=== PATIENT | male | born 1950 | race Caucasian/White ===

== ENCOUNTER 2017-06-05 19:28 | Inpatient (IN) ==
[2017-06-05] MEDS ORDERED: Naloxone 0.4 MG/ML INJ IVP PRN (21:19)
[2017-06-05] MEDS ORDERED: Ondansetron 4 MG/2 ML VIAL IVP PRN (21:25)
--- NOTE | 2017-06-05 21:34 | Internal Med History&Physical ---
Date of Encounter: 06/05/17 Time of Encounter: 21:31 Assessment and Plan (1) Hydronephrosis with obstructing calculus Current visit: Yes Status: Acute Right severe hydronephrosis with large partially obstructing stones Clear liquids, nothing by mouth after midnight, IV fluids, morphine for pain Check urine analyses, may discontinue Rocephin if no infection is suspected Urology consult Protonix IV for GI prophylaxis and sequential compression devices for DVT prophylaxis. The patient will be admitted for observation. Full code. Time spent on this admission 40 minutes (2) Dehydration Current visit: Yes Status: Acute IV fluids (3) Diabetes Current visit: Yes Status: Acute Insulin sliding scale Qualifiers: Diabetes mellitus type: type 2 Diabetes mellitus complication status: without complication Diabetes mellitus intermodal dispatcher insulin use: without intermodal dispatcher use Qualified Code(s): E11.9 - Type 2 diabetes mellitus without complications (4) GERD (gastroesophageal reflux disease) Current visit: Yes Status: Acute Protonix Qualifiers: Esophagitis presence: without esophagitis Qualified Code(s): K21.9 - Gastro -esophageal reflux disease without esophagitis Internal Medicine - H&P: HPI Chief complaint: Abdominal pain Admitted From: Emergency Dept ([place]) History of present illness: Mr. Belcher is a 67 year old male with a past medical history of MRDD, depression , osteoporosis, diabetes type 2 not insulin-dependent, transferred from [facility] ER. Patient is a very poor historian but he has been complaining of nausea and abdominal pain for a few days. The new CT scan shows a right severe hydronephrosis with large partial obstructing stone, also the right kidney is atrophic, these appear to be a recurrent issue. Patient was transferred over here, he denies any chest pain at the moment, short of breath. Unfortunately, because of his MRDD his story is not completely reliable. Appears to be in no distress at this moment. There is no urine analyses performed. Past Med Surg Social Fam HX - Past Medical History Medical history: other (Depression, hyperlipidemia, anxiety, nephrolithiasis, fatty lever, diabetes type 2 not insulin-dependent, hypertension, GERD, intussusception, MRDD, osteoporosis, osteoarthritis, chronic anemia iron deficiency, dementia) - Past Surgical History Surgical History: other (Myringotomy tubes, appendectomy, orthopedic surgeries, cholecystectomy, partial colon resection) - Social History Smoking Status: Never smoker Alcohol use: none Drug use: none - Additional Family History Additional family history: Unknown All Systems PM: A 10-system review of systems was performed and is negative for pertinent findings except as documented above in the HPI. Review of systems: Unable to be completed due to the patient's status - Constitutional General appearance: Present: A&O X 2 (Disoriented in time) - Head Head exam: Present: atraumatic, normocephalic Additional comments: Disorientating time - Eye Eye exam: Present: PERRL, conjuntiva pink, sclera anicteric Pupils: Present: PERRL - Neck Neck exam general surgery: Present: supple, trachea midline. Absent: lymphadenopathy - Respiratory Respiratory exam: Present: CTAB. Absent: accessory muscle use, rales, rhonchi, wheezes - Cardiovascular Cardiovascular exam: Present: RRR, +S1, +S2. Absent: diastolic murmur, gallop, rubs, systolic murmur - GI/Abdominal GI/Abdominal exam: Present: distended, normal bowel sounds, soft, tenderness ( Abdominal tenderness on the right), no peritoneal signs - Extremities Exam Extremities exam: Present: warm, radial pulses palpable and symmetrical. Absent : calf tenderness, cyanotic, pedal edema - Neurological Exam Neurological exam: Present: CN II-XII intact, no focal deficits. Absent: oriented X3, pronater drift, facial droop, speech deficit - Skin Skin exam: Present: dry, intact Internal Med - H&P Results - Labs Labs: White blood cell count 8.7, hemoglobin 2, platelets 316, sodium 141, potassium 3.9 chloride 112 CO2 21 creatinine 1, BUN 12, glucose 78
[2017-06-05] MEDS ORDERED: *HR* Dextrose 50 % in Water (Syg) 50 ML SYRINGE IVP PRN (21:38)
[2017-06-05] MEDS ORDERED: Dextrose Gel 15 GM PO PRN ×2 (21:38)
[2017-06-05] MEDS ORDERED: D5% in Water 1,000 ML IVC PRN (21:38)
[2017-06-05] MEDS ORDERED: cefTRIAXone 1,000 MG in Water for inj. (sterile) 10 ML IVP SCH (23:00)
[2017-06-05] MEDS: *HR* Morphine 2 MG/ML SYRINGE IVP PRN (23:13)
[2017-06-05] MEDS: D5% in 0.45% NACL 1,000 ML IVC SCH (23:14)
[2017-06-05] MEDS: Pantoprazole 40 MG VIAL IVP SCH (23:35)
[2017-06-06] MEDS ORDERED: CefTRIAXone 1,000 MG VIAL IM SCH (03:28)
[2017-06-06] MEDS: Insulin LISPRO 300 UNITS/3 ML VIAL SQ SCH ×4 (04:08→18:18)
[2017-06-06] MEDS: Acetaminophen 325 MG TABLET PO PRN (04:10)
[2017-06-06 07:29] LABS: Basophils # 0.1 K/mcL (0.0-0.2); Basophils % 0.5 %; Eosinophils # 0.6 K/mcL (0.0-0.6); Eosinophils % 5.5 %; Hematocrit 39.9 % (37.5-50.1); Hemoglobin 12.3 g/dL (12.9-16.9); Immature Granulocytes % 0.6 % (0-4); Lymphocytes # 2.8 K/mcL (0.6-4.6); Lymphocytes % 28.1 %; Mean Corpuscular HGB Conc 30.8 g/dL (31.6-35.5); Mean Corpuscular Hemoglobin 28.4 pg (28.0-33.3); Mean Corpuscular Volume 92.1 fL (83.0-100.0); Mean Platelet Volume 10.4 fL (9.4-12.4); Monocytes # 1.1 K/mcL (0.0-1.3); Monocytes % 10.6 %; Neutrophils # 5.5 K/mcL (1.6-8.9); Platelet Count 288 K/mcL (140-400); Red Blood Count 4.33 M/mcL (4.19-5.50); Red Cell Distribution Width 14.5 % (11.5-14.5); Segmented Neutrophils % 54.7 %
[2017-06-06 07:38] LABS: BUN/Creatinine Ratio 13 (6-26); Blood Urea Nitrogen 15 mg/dL (8-26); Calcium 9.3 mg/dL (8.6-10.8); Carbon Dioxide 22 mEq/L (19-29); Chloride 107 mEq/L (98-109); Glucose 84 mg/dL (70-99); Osmolality,Calculated 288 (280-300); Potassium 4.3 mEq/L (3.5-4.5); Sodium 139 mEq/L (136-145); eGFR For African Americans > 60 (> 60); eGFR For Non-African Americans > 60 (> 60)
--- NOTE | 2017-06-06 08:40 | Urology - Consult Note ---
Date of Encounter: 06/06/17 Time of Encounter: 08:35 - Assessment and Plan (1) Right ureteral stone Current Visit: Yes Status: Acute Assessment and plan: Patient is currently asymptomatic from his right ureteral stones as well as hydronephrosis with atrophic right kidney. This is not an acute issue and does not require any intervention while patient in the hospital. I do not believe that this is causing the patient's chest or anterior abdominal discomfort. Patient can follow-up with us after discharge for discussion of long-term management of this atrophic right kidney with obstructing stones. Urology CN:HPI Consult date: 06/06/17 Reason for consult Urology: Other (right renal stones) Requesting physician: Rommel Sharp History of present illness: Jerald is a 67 y/o MRDD male with history of transfer from [facility] for possible kidney stones. The patient states that he has some abdominal discomfort as well as chest pain. Other than that answer he is a poor historian. Upon review the patient's chart his CT scan report which was also personally reviewed revealed right-sided proximal ureteral stones with a subsequently dilated atrophic right kidney. Upon review the patient's report of the CT scan the radiologist commented that this issue on the right kidney and stones were chronic in nature. Patient was also found to have a dilated transverse colon consistent with possible ileus. Patient's WBC count has improved. Normal serum creatinine Past Med Surg Social Fam HX - Past Medical History Medical history: other (Depression, hyperlipidemia, anxiety, nephrolithiasis, fatty lever, diabetes type 2 not insulin-dependent, hypertension, GERD, intussusception, MRDD, osteoporosis, osteoarthritis, chronic anemia iron deficiency, dementia) - Past Surgical History Surgical History: other (Myringotomy tubes, appendectomy, orthopedic surgeries, cholecystectomy, partial colon resection) - Social History Smoking Status: Never smoker Alcohol use: none Drug use: none Medications and Allergies 3 Allergy/AdvReac Type Severity Reaction Status Date / Time No Known Allergies Allergy Verified 06/06/17 03:24 Review of Systems - Constitutional no chills - EENT Nose, mouth and throat: no dizziness - Cardiovascular no chest pain - Respiratory no cough - Gastrointestinal abdominal pain Exam Initial Vital Signs Temp Pulse Resp BP Pulse Ox 98.3 F 75 16 108/70 92 06/06/17 00:09 06/06/17 00:09 06/06/17 00:09 06/06/17 00:09 06/06/17 00:09 - General physical appearance Present: well developed - Neck Present: no masses - Respiratory Present: normal respiratory effort - Cardiovascular Cardiovascular exam IM: RRR - Abdomen Abdomen: Present: soft (pain on palpation with large ex lap looking incision scar) - Integumentary Present: no rash Urology Results - Labs 06/06/17 06:52 06/06/17 06:52 Abnormal lab results Hgb 12.3 g/dL (12.9-16.9) L 06/06/17 06:52 MCHC 30.8 g/dL (31.6-35.5) L 06/06/17 06:52 POC Glucose 91 (58-89) H 06/06/17 05:45 Diabetes panel 06/06/17 Range/Units 06:52 Sodium 139 (136-145) mEq/L Potassium 4.3 (3.5-4.5) mEq/L Chloride 107 (98-109) mEq/L Carbon Dioxide 22 (19-29) mEq/L BUN 15 (8-26) mg/dL Creatinine 1.17 (0.72-1.25) mg/dL Glucose 84 (70-99) mg/dL Calcium 9.3 (8.6-10.8) mg/dL Calcium panel 06/06/17 Range/Units 06:52 Calcium 9.3 (8.6-10.8) mg/dL Pituitary panel 06/06/17 Range/Units 06:52 Sodium 139 (136-145) mEq/L Potassium 4.3 (3.5-4.5) mEq/L Chloride 107 (98-109) mEq/L Carbon Dioxide 22 (19-29) mEq/L BUN 15 (8-26) mg/dL Creatinine 1.17 (0.72-1.25) mg/dL Glucose 84 (70-99) mg/dL Calcium 9.3 (8.6-10.8) mg/dL Adrenal panel 06/06/17 Range/Units 06:52 Sodium 139 (136-145) mEq/L Potassium 4.3 (3.5-4.5) mEq/L Chloride 107 (98-109) mEq/L Carbon Dioxide 22 (19-29) mEq/L BUN 15 (8-26) mg/dL Creatinine 1.17 (0.72-1.25) mg/dL Glucose 84 (70-99) mg/dL Calcium 9.3 (8.6-10.8) mg/dL All other labs normal. - Imaging CT scan - abdomen: image reviewed CT scan - pelvis: image reviewed Consult Discharge Plan - Plan Referrals: NONE,PCP [Primary Care Provider] -
[2017-06-06] MEDS ORDERED: Water for inj. (sterile) 0 ML IV ONE (09:44)
[2017-06-06] MEDS: Pantoprazole 40 MG VIAL IVP SCH (09:54)
--- NOTE | 2017-06-06 14:17 | Internal Med Progress Note ---
Date of Encounter: 06/06/17 Time of Encounter: 09:00 - Assessment and plan (1) Hydronephrosis with obstructing calculus Current Visit: Yes Status: Acute Assessment and plan: Jerald Belcher is a 67 y/o male with PMH diabetes, GERD and MRDD who presented to outside hospital on 06/05 with complaints of abdominal pain. He was found to have severe hydronephrosis and a large partially obstructing stone and was transferred to [facility] for further workup and treatment. 1. Abdominal pain: That started day of presentation after eating a ham sandwich. Outside hospital abdominal CT with chronic hydronephrosis, chronic ureteritis and possible ileus. No abdominal pain on 06/06 exam. Advance diet to clear liquids. KUB pending to reevaluate possible ileus 2. Hydronephrosis with obstructing calculus: Presented to outside hospital with Robert pain. ADD CTA showed severe right-sided hydronephrosis with large, partially obstructing stone. He was evaluated by urology who noted this is not an acute issue and does not require any intervention while inpatient. Patient can follow up with urology after discharge. UA and renal ultrasound pending. If UA unremarkable then stop Rocephin. 3. Diabetes: per hx. SSI. Monitor blood sugar and titrate PRN 4. MRDD: per hx. mentation appears at baseline. Supportive care. 5. DVT prophylaxis: Lovenox (2) Cognitive developmental delay Current Visit: Yes Status: Acute (3) Diabetes Current Visit: Yes Status: Acute Qualifiers: Diabetes mellitus type: type 2 Diabetes mellitus complication status: without complication Diabetes mellitus nursing home insulin use: without nursing home use Qualified Code(s): E11.9 - Type 2 diabetes mellitus without complications - Subjective Interval history: Seen and examined at bedside. Patient is new to me, information obtained from chart review and patient report. Patient says he feels much better on my exam, he actually denies abdominal pain. No loose stools, nausea or vomiting. - Constitutional Vitals: Temp Pulse Resp BP Pulse Ox 98.0 F 66 14 121/73 93 06/06/17 11:09 06/06/17 11:09 06/06/17 11:09 06/06/17 11:09 06/06/17 11:09 General appearance: Present: A&O X 2 (Disoriented in time) - Head Head exam: Present: atraumatic, normocephalic - Eye Eye exam: Present: PERRL, conjuntiva pink, sclera anicteric Pupils: Present: PERRL - Neck Neck exam general surgery: Present: supple, trachea midline. Absent: lymphadenopathy - Respiratory Respiratory exam: Present: CTAB. Absent: accessory muscle use, rales, rhonchi, wheezes - Cardiovascular Cardiovascular exam: Present: RRR, +S1, +S2. Absent: diastolic murmur, gallop, rubs, systolic murmur - GI/Abdominal GI/Abdominal exam: Present: normal bowel sounds, soft, no peritoneal signs. Absent: distended, tenderness - Extremities Exam Extremities exam: Present: warm, radial pulses palpable and symmetrical. Absent : calf tenderness, cyanotic, pedal edema - Neurological Exam Neurological exam: Present: CN II-XII intact, oriented X3, no focal deficits. Absent: pronater drift, facial droop, speech deficit - Skin Skin exam: Present: dry, intact Internal Medicine: Result - Labs CBC & Chem 7: 06/06/17 06:52 06/06/17 06:52 Labs: Short CBC 06/06/17 Range/Units 06:52 WBC 10.1 (4.3-11.1) K/mcL Hgb 12.3 L (12.9-16.9) g/dL Hct 39.9 (37.5-50.1) % Plt Count 288 (140-400) K/mcL Neutrophils # 5.5 (1.6-8.9) K/mcL BMP 06/06/17 06:52 Sodium 139 Potassium 4.3 Chloride 107 Carbon Dioxide 22 BUN 15 Creatinine 1.17 Glucose 84 Calcium 9.3 Consult Discharge Plan - Plan Referrals: NONE,PCP [Primary Care Provider] -
[2017-06-06] MEDS: *HR* Morphine 2 MG/ML SYRINGE IVP PRN ×2 (15:53→20:10)
[2017-06-06] MEDS: *HR* Enoxaparin 40 MG/0.4 ML SYRINGE SQ SCH (15:53)
[2017-06-06] MEDS: D5% in 0.45% NACL 1,000 ML IVC SCH ×2 (18:20→22:18)
[2017-06-07] MEDS: Insulin LISPRO 300 UNITS/3 ML VIAL SQ SCH ×4 (00:35→17:43)
[2017-06-07 05:07] LABS: Hematocrit 34.6 % (37.5-50.1); Mean Corpuscular HGB Conc 30.9 g/dL (31.6-35.5); Mean Corpuscular Hemoglobin 28.2 pg (28.0-33.3); Mean Corpuscular Volume 91.3 fL (83.0-100.0); Mean Platelet Volume 9.9 fL (9.4-12.4); Platelet Count 277 K/mcL (140-400); Red Blood Count 3.79 M/mcL (4.19-5.50); Red Cell Distribution Width 14.3 % (11.5-14.5)
[2017-06-07 05:39] LABS: Hemoglobin 10.7 g/dL (12.9-16.9)
[2017-06-07 05:49] LABS: BUN/Creatinine Ratio 10 (6-26); Blood Urea Nitrogen 11 mg/dL (8-26); Calcium 8.7 mg/dL (8.6-10.8); Carbon Dioxide 22 mEq/L (19-29); Chloride 107 mEq/L (98-109); Glucose 108 mg/dL (70-99); Osmolality,Calculated 286 (280-300); Potassium 3.7 mEq/L (3.5-4.5); Sodium 138 mEq/L (136-145); eGFR For African Americans > 60 (> 60); eGFR For Non-African Americans > 60 (> 60)
[2017-06-07] MEDS: *HR* Enoxaparin 40 MG/0.4 ML SYRINGE SQ SCH (06:05)
[2017-06-07] MEDS: cefTRIAXone 1,000 MG in Water for inj. (sterile) 10 ML IVP SCH (09:09)
[2017-06-07] MEDS: Pantoprazole 40 MG VIAL IVP SCH (09:10)
[2017-06-07] MEDS: D5% in 0.45% NACL 1,000 ML IVC SCH ×2 (09:11→20:15)
[2017-06-07] MEDS: *HR* Morphine 2 MG/ML SYRINGE IVP PRN ×3 (11:45→22:11)
--- NOTE | 2017-06-07 11:48 | General Surgery Consult Note ---
Date of Encounter: 06/07/17 Time of Encounter: 11:30 Assessment and Plan (1) Ileus, unspecified Current Visit: Yes Status: Acute NPO IV fluids Supportive care and pain control Serial abdominal exams CT scan to further evaluate for ileus vs PSBO and continued abdominal pain Surgery will continue to follow and assess progess No urgent surgical intervention indicated at this time Recommend UA with culture (ordered but uncollected) (2) Abdominal pain Current Visit: Yes Status: Acute CT scan of the abdomen with PO contrast to evauate abdominal pain further ( ordered per hospitalist) Qualifiers: Abdominal location: periumbilical Qualified Code(s): R10.33 - Periumbilical pain (3) Diabetes Current Visit: Yes Status: Chronic Controlled Management per medicine service Qualifiers: Diabetes mellitus type: type 2 Diabetes mellitus complication status: without complication Diabetes mellitus exterminator helper insulin use: without exterminator helper use Qualified Code(s): E11.9 - Type 2 diabetes mellitus without complications (4) GERD (gastroesophageal reflux disease) Current Visit: Yes Status: Chronic PPI therapy daily Qualifiers: Esophagitis presence: without esophagitis Qualified Code(s): K21.9 - Gastro -esophageal reflux disease without esophagitis (5) Right ureteral stone Current Visit: Yes Status: Acute Urology consulted and recommended outpatient follow-up (6) DVT prophylaxis Current Visit: Yes Status: Acute Lovenox 40mg SQ daily for DVT prophylaxis EPCDs to bilateral lower extremities for DVT prophylaxis History of Present Illness Consult date: 06/07/17 Requesting physician: Kathy Gongora History of present illness: Mr. Belcher is a 67 year old male with multiple comorbidities. He does have a history of MRDD and is a resident at [facility] in [place]. He is a poor historian and much of the history is taken from the medical records. The patient is able to give appropriate answers to simple questions. He was transferred from [facility] with complaints of abdominal discomfort and possible right ureteral stone. The patient has been seen and evaluated by the urology and his CAT scan findings are chronic in nature and felt to not be the cause of his acute pain. He has had continued abdominal discomfort during his hospital stay and states that this has not improved. He denies any radiating factors. He states that the pain is centrally located around his umbilicus. He states the pain is constant. He does report constipation but did have a large, soft bowel movement this morning. He is passing flatus as recent as this morning. He denies any nausea or vomiting. He admits to abdominal bloating and poor appetite. Past Med Surg Social Fam HX - Past Medical History Source: patient, old records reviewed Medical history: dementia (With behavioral disturbance), diabetes (Type 2), GERD , hypertension, kidney stones, other (Acute kidney injury, rhabdomyolysis, urinary tract infection, small bowel obstruction, anemia, chronic headaches, chronic constipation, atrophy of kidney) Psychiatric history: anxiety, depression - Past Surgical History Surgical History: other (Myringotomy tubes, appendectomy, orthopedic surgeries, cholecystectomy, partial colon resection) - Social History Smoking Status: Never smoker Alcohol use: none Drug use: none Occupational status: disabled Current living situation: [facility] Activity Level: Independent ambulation Medications and Allergies Acetaminophen [Tylenol] 650 mg PO Q4H PRN 06/06/17 [History] Bisacodyl [Dulcolax] 10 mg RC DAILY PRN 06/06/17 [History] Calcium Carbonate/Vitamin D3 [Calcium 500 + Vit D Caplet] 1 tab PO BID 06/06/17 [History] Docusate Sodium [Dok] 100 mg PO Q12H PRN 06/06/17 [History] Loratadine [Allergy Relief] 10 mg PO DAILY 06/06/17 [History] Metoprolol [Lopressor] 25 mg PO BID 06/06/17 [History] [place]-3/Dha/Epa/Fish Oil [Fish Oil 1,000 mg Softgel] 1 cap PO DAILY 06/06/17 [ History] Potassium Chloride [K-Tab ER] 20 meq PO BID 06/06/17 [History] Prochlorperazine Maleate [Compazine] 5 mg PO ACHS 06/06/17 [History] Promethazine [Phenergan] 25 mg PO Q4H 06/06/17 [History] Quetiapine Fumarate [Seroquel] 50 mg PO HS 06/06/17 [History] Sertraline [Zoloft] 50 mg PO HS 06/06/17 [History] Triamcinolone Acet 0.1% CRM [Kenalog] 1 appl TP BID PRN 06/06/17 [History] 3 Allergy/AdvReac Type Severity Reaction Status Date / Time No Known Allergies Allergy Verified 06/06/17 03:24 Review of Systems All systems PM: reviewed and no additional remarkable complaints except as stated (in the HPI) All systems PM: A 10-system review of systems was performed and is negative for pertinent findings except as documented above in the HPI. General Surgery Exam Initial Vital Signs Temp Pulse Resp BP Pulse Ox 98.3 F 75 16 108/70 92 06/06/17 00:09 06/06/17 00:09 06/06/17 00:09 06/06/17 00:09 06/06/17 00:09 - General physical appearance well developed, well nourished, moderate pain - Eyes PERRL, normal ocular movement - ENT normal mucosa, atraumatic, normocephalic - Neck trachea midline - Respiratory normal respiratory effort, clear to auscultation - Cardiovascular Cardiovascular exam: Present: RRR - Abdomen Abdomen general surgery: Present: bowel sounds present, soft, tender Hernia: Present: umbilical - Integumentary Integumentary general surgery: Present: warm and dry - Neurologic Present: CN 2-12 grossly intact - Psychiatric Psychiatric general surgery: Present: oriented to person, oriented to place, speech is normal, tearful Exam Initial Vital Signs Temp Pulse Resp BP Pulse Ox 98.3 F 75 16 108/70 92 06/06/17 00:09 06/06/17 00:09 06/06/17 00:09 06/06/17 00:09 06/06/17 00:09 Results - Labs 06/07/17 04:45 06/07/17 04:45 Abnormal lab results RBC 3.79 M/mcL (4.19-5.50) L 06/07/17 04:45 Hgb 10.7 g/dL (12.9-16.9) L D 06/07/17 04:45 Hct 34.6 % (37.5-50.1) L 06/07/17 04:45 MCHC 30.9 g/dL (31.6-35.5) L 06/07/17 04:45 Glucose 108 mg/dL (70-99) H 06/07/17 04:45 POC Glucose 107 (58-89) H 06/07/17 05:47 Diabetes panel 06/07/17 Range/Units 04:45 Sodium 138 (136-145) mEq/L Potassium 3.7 (3.5-4.5) mEq/L Chloride 107 (98-109) mEq/L Carbon Dioxide 22 (19-29) mEq/L BUN 11 (8-26) mg/dL Creatinine 1.07 (0.72-1.25) mg/dL Glucose 108 H (70-99) mg/dL Calcium 8.7 (8.6-10.8) mg/dL Calcium panel 06/07/17 Range/Units 04:45 Calcium 8.7 (8.6-10.8) mg/dL Pituitary panel 06/07/17 Range/Units 04:45 Sodium 138 (136-145) mEq/L Potassium 3.7 (3.5-4.5) mEq/L Chloride 107 (98-109) mEq/L Carbon Dioxide 22 (19-29) mEq/L BUN 11 (8-26) mg/dL Creatinine 1.07 (0.72-1.25) mg/dL Glucose 108 H (70-99) mg/dL Calcium 8.7 (8.6-10.8) mg/dL Adrenal panel 06/07/17 Range/Units 04:45 Sodium 138 (136-145) mEq/L Potassium 3.7 (3.5-4.5) mEq/L Chloride 107 (98-109) mEq/L Carbon Dioxide 22 (19-29) mEq/L BUN 11 (8-26) mg/dL Creatinine 1.07 (0.72-1.25) mg/dL Glucose 108 H (70-99) mg/dL Calcium 8.7 (8.6-10.8) mg/dL All other labs normal. - Imaging Abdominal x-ray: report reviewed Additional studies: KUB X-Ray 06/06/17 14:29 IMPRESSION: Gaseous distention of stomach and multiple small bowel loops concerning for small bowel obstruction versus ileus. Clinical correlation and continued follow-up recommended. Multiple ossifications in the right mid abdomen appear to be somewhat laterally located for the ureter, but ureteral stones cannot entirely be excluded. CT may be of use for further evaluation. D/ / 06/06/2017 15:10:34 Tono Reyna MD / jeff Interpreting Provider: Tono Reyna MD Consult Discharge Plan - Plan Referrals: NONE,PCP [Primary Care Provider] - - Attending Attestation For this encounter, I have reviewed the LEAD CASE MANAGER or PA documentation, treatment plan, and medical decision making; and I have had face to face time with this patient.
[2017-06-07] MEDS: Acetaminophen 325 MG TABLET PO PRN (14:30)
[2017-06-07 16:21] LABS: Bilirubin,Urine Negative (Negative); Blood,Urine Moderate (Negative); Clarity,Urine Cloudy (Clear); Color,Urine Yellow (Yellow); Glucose,Urine (UA) Normal (Normal); Ketones,Urine Negative (Negative); Leukocyte Esterase,Urine Large (Negative); Nitrite,Urine Negative (Negative); PH,Urine 6.5 pH Units (5.0-8.0); Protein,Urine Negative (Neg-Trace); Specific Gravity,Urine 1.006 (1.010-1.025); Urobilinogen,Urine Normal (Normal)
[2017-06-07 16:39] LABS: Squamous Epithelial Cell,Urine Few per lpf (None-Few)
[2017-06-07 16:41] LABS: RBC,Urine 0-3 per hpf (0-3)
[2017-06-07 16:43] LABS: Amorphous Sediment,Urine Few (Few)
[2017-06-07 16:55] LABS: Bacteria,Urine Few per hpf (None-Few)
--- NOTE | 2017-06-07 17:15 | Internal Med Progress Note ---
Date of Encounter: 06/07/17 Time of Encounter: 11:30 - Assessment and plan (1) Hydronephrosis with obstructing calculus Current Visit: Yes Status: Acute Assessment and plan: Jerald Belcher is a 67 y/o male with PMH diabetes, GERD and MRDD who presented to outside hospital on 06/05 with complaints of abdominal pain. He was found to have severe hydronephrosis and a large partially obstructing stone and was transferred to [facility] for further workup and treatment. 1. Abdominal pain: That started day of presentation after eating a ham sandwich. Outside hospital abdominal CT with chronic hydronephrosis, chronic ureteritis and possible ileus. Repeat ABD CT with small bowel loops are mildly dilated concerning for SBO or ilues. No vomiting, abdominal exam benign. No peritoneal signs. Hold on NG. Increase mobility as able. NPO General surgery following 2. Hydronephrosis with obstructing calculus: Presented to outside hospital with Robert pain. ABD CT showed severe right-sided hydronephrosis with large, partially obstructing stone. Renal US with severe right hydronephrosis with multiple stones in the proximal right ureter. He was evaluated by urology who noted this is not an acute issue and does not require any intervention while inpatient. Patient can follow up with urology after discharge. UA and renal ultrasound pending. 3. Diabetes: per hx. SSI. Monitor blood sugar and titrate PRN 4. MRDD: per hx. mentation appears at baseline. Supportive care. 5. DVT prophylaxis: Lovenox 6. Abnormal UA: UA was leuk esterase and pyuria. Continue Rocephin. Urine culture pending. Narrow ATB's culture finalizes. (2) Cognitive developmental delay Current Visit: Yes Status: Acute (3) Diabetes Current Visit: Yes Status: Chronic Qualifiers: Diabetes mellitus type: type 2 Diabetes mellitus complication status: without complication Diabetes mellitus intermediate insulin use: without intermediate use Qualified Code(s): E11.9 - Type 2 diabetes mellitus without complications - Subjective Interval history: Seen and examined at bedside. He is complaining of chest pain and abdominal pain. Chest pain is reproducible on exam with light palpation. ABD is tender to touch. Denies SOB - Constitutional Vitals: Temp Pulse Resp BP Pulse Ox 97.5 F L 66 16 98/62 97 06/07/17 15:11 06/07/17 15:11 06/07/17 15:11 06/07/17 15:11 06/07/17 15:11 General appearance: Present: A&O X 2 (Disoriented in time) - Head Head exam: Present: atraumatic, normocephalic - Eye Eye exam: Present: PERRL, conjuntiva pink, sclera anicteric Pupils: Present: PERRL - Neck Neck exam general surgery: Present: supple, trachea midline. Absent: lymphadenopathy - Respiratory Respiratory exam: Present: chest wall tenderness, CTAB. Absent: accessory muscle use, rales, rhonchi, wheezes - Cardiovascular Cardiovascular exam: Present: RRR, +S1, +S2. Absent: diastolic murmur, gallop, rubs, systolic murmur - GI/Abdominal GI/Abdominal exam: Present: normal bowel sounds, soft, no peritoneal signs. Absent: distended, tenderness - Extremities Exam Extremities exam: Present: warm, radial pulses palpable and symmetrical. Absent : calf tenderness, cyanotic, pedal edema - Neurological Exam Neurological exam: Present: CN II-XII intact, oriented X3, no focal deficits. Absent: pronater drift, facial droop, speech deficit - Skin Skin exam: Present: dry, intact Internal Medicine: Result - Labs CBC & Chem 7: 06/07/17 04:45 06/07/17 04:45 Labs: Short CBC 06/07/17 Range/Units 04:45 WBC 10.5 (4.3-11.1) K/mcL Hgb 10.7 L D (12.9-16.9) g/dL Hct 34.6 L (37.5-50.1) % Plt Count 277 (140-400) K/mcL BMP 06/07/17 04:45 Sodium 138 Potassium 3.7 Chloride 107 Carbon Dioxide 22 BUN 11 Creatinine 1.07 Glucose 108 H Calcium 8.7 Urine 06/07/17 Range/Units 12:40 Urine Color Yellow (Yellow) Urine Clarity Cloudy A (Clear) Urine pH 6.5 (5.0-8.0) pH Units Ur Specific [place] 1.006 L (1.010-1.025) Urine Protein Negative (Neg-Trace) mg/dL Urine Glucose (UA) Normal (Normal) mg/dL - Impressions Impressions Retroperitoneum Ultrasound 06/06/17 10:00 IMPRESSION: Severe right hydronephrosis with cortical thinning. Multiple stones are noted within the kidney and proximal right ureter. Mild left hydronephrosis without evidence of nephrolithiasis. RECOMMENDATIONS: Consideration could be given to CT urogram to evaluate the distal ureters and urinary bladder. D/ / Pardeep Manzo / Pardeep Manzo Interpreting Provider: Pardeep Manzo Abdomen/Pelvis CT 06/07/17 12:45 IMPRESSION: 1. Postsurgical changes are seen status post partial colectomy. The small bowel loops are mildly dilated, measuring up to 3.5 cm in diameter. There is gaseous distention of the transverse colon. No discrete transition point identified. Findings are favored to represent ileus. 2. Marked right renal atrophy likely due to chronic obstruction from ureteral calculi. 3. Hepatic steatosis. D/ / 06/07/2017 13:28:19 Poppy Shelton MD / chi Interpreting Provider: Poppy Shelton MD Consult Discharge Plan - Plan Referrals: NONE,PCP [Primary Care Provider] -
[2017-06-07] MEDS: Metoclopramide 10 MG/2 ML VIAL IVP SCH ×2 (17:43→23:51)
[2017-06-08] MEDS: Insulin LISPRO 300 UNITS/3 ML VIAL SQ SCH ×4 (00:34→20:44)
[2017-06-08 04:09] LABS: Hematocrit 33.1 % (37.5-50.1); Hemoglobin 10.6 g/dL (12.9-16.9); Mean Corpuscular Hemoglobin 28.8 pg (28.0-33.3); Mean Corpuscular Volume 89.9 fL (83.0-100.0); Mean Platelet Volume 10.2 fL (9.4-12.4); Platelet Count 271 K/mcL (140-400); Red Blood Count 3.68 M/mcL (4.19-5.50); Red Cell Distribution Width 13.9 % (11.5-14.5)
[2017-06-08 04:22] LABS: BUN/Creatinine Ratio 8 (6-26); Blood Urea Nitrogen 8 mg/dL (8-26); Calcium 8.6 mg/dL (8.6-10.8); Carbon Dioxide 21 mEq/L (19-29); Chloride 109 mEq/L (98-109); Glucose 99 mg/dL (70-99); Osmolality,Calculated 288 (280-300); Potassium 3.4 mEq/L (3.5-4.5); Sodium 140 mEq/L (136-145); eGFR For African Americans > 60 (> 60); eGFR For Non-African Americans > 60 (> 60)
[2017-06-08] MEDS: D5% in 0.45% NACL 1,000 ML IVC SCH ×2 (06:45→16:51)
[2017-06-08] MEDS: *HR* Enoxaparin 40 MG/0.4 ML SYRINGE SQ SCH (06:47)
[2017-06-08] MEDS: Metoclopramide 10 MG/2 ML VIAL IVP SCH ×3 (06:47→22:29)
--- NOTE | 2017-06-08 09:12 | Internal Med Progress Note ---
Date of Encounter: 06/08/17 Time of Encounter: 09:11 - Assessment and plan (1) Ileus, unspecified Current Visit: Yes Status: Acute Assessment and plan: Jerald Belcher is a 67 y/o male with PMH diabetes, GERD and MRDD who presented to outside hospital on 06/05 with complaints of abdominal pain. He was found to have severe hydronephrosis and a large partially obstructing stone and was transferred to [facility] for further workup and treatment. 1. Ileus: presented with abdominal pain that started day of admission. Hx partial colectomy but details unclear. Outside hospital abdominal CT with chronic hydronephrosis, chronic ureteritis and possible ileus. Repeat ABD CT with mildly dilated small bowel loops and gaseous distention of transverse colon , concerning for SBO or ilues. No vomiting. Still with abdominal pain. Abdominal exam benign; no peritoneal signs. Hold on NG. NPO. General surgery following. PT/OT consult for mobility. 2. Hydronephrosis with obstructing calculus: presented to outside hospital with abdominal pain. ABD CT showed severe right-sided hydronephrosis with large, partially obstructing stone. Renal US showed severe right hydronephrosis with multiple stones in the proximal right ureter. He was evaluated by Urology who noted likely chronic, no acute intervention required at this time. Will need to follow up with Urology after discharge. 3. Abnormal UA: UA was leuk esterase and pyuria. Continue Rocephin. Urine culture pending. Narrow ATB as culture finalizes. 4. Hypertension: Per history. BP soft/borderline. Hold home BB. Resume as BP allows. 5. Diabetes: per hx. SSI. Monitor blood sugar and titrate PRN 6. MRDD: per hx. High functioning. Lives at [facility]. Mentation appears at baseline. Supportive care. 7. DVT prophylaxis: Lovenox (2) Hydronephrosis with obstructing calculus Current Visit: Yes Status: Acute (3) Cognitive developmental delay Current Visit: Yes Status: Acute (4) Diabetes Current Visit: Yes Status: Chronic Qualifiers: Diabetes mellitus type: type 2 Diabetes mellitus complication status: without complication Diabetes mellitus residential insulin use: without residential use Qualified Code(s): E11.9 - Type 2 diabetes mellitus without complications - Subjective Interval history: Seen and examined at bedside. Still with complaints of abdominal pain. Has some nausea. No emesis. Denies chest pain, no shortness of breath. Has not had a bowel movement since admission. Says he had colon surgery several years ago where they removed a large part of his colon but he is unsure details. - Constitutional Vitals: Temp Pulse Resp BP Pulse Ox 98.1 F 90 16 129/71 93 06/08/17 06:37 06/08/17 06:37 06/08/17 06:37 06/08/17 06:37 06/08/17 06:37 General appearance: Present: A&O X 2 (Disoriented in time) - Head Head exam: Present: atraumatic, normocephalic - Eye Eye exam: Present: PERRL, conjuntiva pink, sclera anicteric Pupils: Present: PERRL - Neck Neck exam general surgery: Present: supple, trachea midline. Absent: lymphadenopathy - Respiratory Respiratory exam: Present: CTAB. Absent: accessory muscle use, rales, rhonchi, wheezes - Cardiovascular Cardiovascular exam: Present: RRR, +S1, +S2. Absent: diastolic murmur, gallop, rubs, systolic murmur - GI/Abdominal GI/Abdominal exam: Present: soft, no peritoneal signs. Absent: distended, tenderness Additional comments: Hypoactive bowel sounds. Abdomen tender to palpation. - Extremities Exam Extremities exam: Present: warm, radial pulses palpable and symmetrical. Absent : calf tenderness, cyanotic, pedal edema - Neurological Exam Neurological exam: Present: CN II-XII intact, oriented X3, no focal deficits. Absent: pronater drift, facial droop, speech deficit - Skin Skin exam: Present: dry, intact Internal Medicine: Result - Labs CBC & Chem 7: 06/08/17 03:50 06/08/17 03:50 Labs: Short CBC 06/08/17 Range/Units 03:50 WBC 9.3 (4.3-11.1) K/mcL Hgb 10.6 L (12.9-16.9) g/dL Hct 33.1 L (37.5-50.1) % Plt Count 271 (140-400) K/mcL BMP 06/08/17 03:50 Sodium 140 Potassium 3.4 L Chloride 109 Carbon Dioxide 21 BUN 8 Creatinine 1.04 Glucose 99 Calcium 8.6 Urine 06/07/17 Range/Units 12:40 Urine Color Yellow (Yellow) Urine Clarity Cloudy A (Clear) Urine pH 6.5 (5.0-8.0) pH Units Ur Specific [place] 1.006 L (1.010-1.025) Urine Protein Negative (Neg-Trace) mg/dL Urine Glucose (UA) Normal (Normal) mg/dL - Impressions Impressions Retroperitoneum Ultrasound 06/06/17 10:00 IMPRESSION: Severe right hydronephrosis with cortical thinning. Multiple stones are noted within the kidney and proximal right ureter. Mild left hydronephrosis without evidence of nephrolithiasis. RECOMMENDATIONS: Consideration could be given to CT urogram to evaluate the distal ureters and urinary bladder. D/ / Pardeep Manzo / Pardeep Manzo Interpreting Provider: Pardeep Manzo Abdomen/Pelvis CT 06/07/17 12:45 IMPRESSION: 1. Postsurgical changes are seen status post partial colectomy. The small bowel loops are mildly dilated, measuring up to 3.5 cm in diameter. There is gaseous distention of the transverse colon. No discrete transition point identified. Findings are favored to represent ileus. 2. Marked right renal atrophy likely due to chronic obstruction from ureteral calculi. 3. Hepatic steatosis. D/ / 06/07/2017 13:28:19 Poppy Shelton MD / chi Interpreting Provider: Poppy Shelton MD Consult Discharge Plan - Plan Referrals: NONE,PCP [Primary Care Provider] -
[2017-06-08] MEDS: cefTRIAXone 1,000 MG in Water for inj. (sterile) 10 ML IVP SCH (10:35)
[2017-06-08] MEDS: Pantoprazole 40 MG VIAL IVP SCH ×2 (10:36→20:38)
[2017-06-08] MEDS: *HR* Morphine 2 MG/ML SYRINGE IVP PRN ×2 (13:05→20:37)
--- NOTE | 2017-06-08 14:46 | General Surgery Progress Note ---
Date of Encounter: 06/08/17 Time of Encounter: 14:30 - Assessment and Plan (1) Ileus, unspecified Current Visit: Yes Status: Acute Advance to full liquids Reglan every 6 hours X 48 hours IV fluids Supportive care and pain control Serial abdominal exams Surgery will continue to follow from a distance No urgent surgical intervention indicated at this time (2) Abdominal pain Current Visit: Yes Status: Acute CT scan of the abdomen consistent with ileus Continue reglan every 6 hours Advance to full liquids Qualifiers: Abdominal location: periumbilical Qualified Code(s): R10.33 - Periumbilical pain (3) Diabetes Current Visit: Yes Status: Chronic Controlled Management per medicine service Qualifiers: Diabetes mellitus type: type 2 Diabetes mellitus complication status: without complication Diabetes mellitus halfway insulin use: without termite inspector use Qualified Code(s): E11.9 - Type 2 diabetes mellitus without complications (4) GERD (gastroesophageal reflux disease) Current Visit: Yes Status: Chronic PPI therapy daily Qualifiers: Esophagitis presence: without esophagitis Qualified Code(s): K21.9 - Gastro -esophageal reflux disease without esophagitis (5) Right ureteral stone Current Visit: Yes Status: Acute Urology consulted and recommended outpatient follow-up (6) DVT prophylaxis Current Visit: Yes Status: Acute Lovenox 40mg SQ daily for DVT prophylaxis EPCDs to bilateral lower extremities for DVT prophylaxis Subjective Patient reports: no new complaints, feels better, still having pain, pain is less, voiding w/o difficulty (incontinent), flatus, bowel movement (yesterday and today), afebrile Objective Vital Signs - Last 8 Hours Temp Pulse Resp BP Pulse Ox 06/08/17 11:18 98.0 F 92 16 122/68 92 Intake and Output 06/07/17 06/08/17 06/08/17 23:59 07:59 15:59 Intake Total 1000 / 1000 1000 / 1000 Balance 1000 / 1000 1000 / 1000 Intake: IV Fluids 1000 / 1000 1000 / 1000 D5% And 0.45% Nacl 1000 Ml Bag 1000 / 1000 1000 / 1000 1,000 ML @ 100 mls/hr IVC .Q10H DINA Rx#:[id number] Oral 0 / 0 Other: Meal NPO # Urine Diapers 1 1 1 Weight 71.469 kg Blood Glucose* 90 95 118 Patient Weight 06/08/17 23:59 Weight 71.469 kg - General physical appearance well developed, well nourished, no distress - Eyes normal ocular movement - ENT normal mucosa, atraumatic, normocephalic - Neck Neck exam: trachea midline - Respiratory normal respiratory effort, clear to auscultation - Cardiovascular Cardiovascular exam: Present: RRR - Abdomen Abdomen: Present: bowel sounds present, soft, tender (central tenderness) - Neurologic CN 2-12 grossly intact - Psychiatric oriented to person, oriented to place, speech is normal - Labs 06/08/17 03:50 06/08/17 03:50 Diabetes panel 06/08/17 Range/Units 03:50 Sodium 140 (136-145) mEq/L Potassium 3.4 L (3.5-4.5) mEq/L Chloride 109 (98-109) mEq/L Carbon Dioxide 21 (19-29) mEq/L BUN 8 (8-26) mg/dL Creatinine 1.04 (0.72-1.25) mg/dL Glucose 99 (70-99) mg/dL Calcium 8.6 (8.6-10.8) mg/dL Calcium panel 06/08/17 Range/Units 03:50 Calcium 8.6 (8.6-10.8) mg/dL Pituitary panel 06/08/17 Range/Units 03:50 Sodium 140 (136-145) mEq/L Potassium 3.4 L (3.5-4.5) mEq/L Chloride 109 (98-109) mEq/L Carbon Dioxide 21 (19-29) mEq/L BUN 8 (8-26) mg/dL Creatinine 1.04 (0.72-1.25) mg/dL Glucose 99 (70-99) mg/dL Calcium 8.6 (8.6-10.8) mg/dL Adrenal panel 06/08/17 Range/Units 03:50 Sodium 140 (136-145) mEq/L Potassium 3.4 L (3.5-4.5) mEq/L Chloride 109 (98-109) mEq/L Carbon Dioxide 21 (19-29) mEq/L BUN 8 (8-26) mg/dL Creatinine 1.04 (0.72-1.25) mg/dL Glucose 99 (70-99) mg/dL Calcium 8.6 (8.6-10.8) mg/dL Consult Discharge Plan - Plan Referrals: NONE,PCP [Primary Care Provider] -
[2017-06-08] MEDS ORDERED: *HR* Morphine 2 MG/ML SYRINGE IVP ONE (14:52)
[2017-06-09] MEDS: D5% in 0.45% NACL 1,000 ML IVC SCH ×2 (02:58→15:13)
[2017-06-09] MEDS: *HR* Morphine 2 MG/ML SYRINGE IVP PRN ×4 (02:59→20:45)
[2017-06-09 05:33] LABS: Hematocrit 32.6 % (37.5-50.1); Hemoglobin 10.2 g/dL (12.9-16.9); Mean Corpuscular HGB Conc 31.3 g/dL (31.6-35.5); Mean Corpuscular Hemoglobin 28.6 pg (28.0-33.3); Mean Corpuscular Volume 91.3 fL (83.0-100.0); Mean Platelet Volume 10.5 fL (9.4-12.4); Platelet Count 268 K/mcL (140-400); Red Blood Count 3.57 M/mcL (4.19-5.50); Red Cell Distribution Width 14.1 % (11.5-14.5)
[2017-06-09 05:48] LABS: BUN/Creatinine Ratio 4 (6-26); Calcium 8.8 mg/dL (8.6-10.8); Carbon Dioxide 22 mEq/L (19-29); Chloride 111 mEq/L (98-109); Glucose 95 mg/dL (70-99); Osmolality,Calculated 291 (280-300); Potassium 3.3 mEq/L (3.5-4.5); Sodium 142 mEq/L (136-145); eGFR For African Americans > 60 (> 60); eGFR For Non-African Americans > 60 (> 60)
[2017-06-09 05:51] LABS: Blood Urea Nitrogen 4 mg/dL (8-26)
[2017-06-09] MEDS: Insulin LISPRO 300 UNITS/3 ML VIAL SQ SCH ×4 (06:11→17:49)
[2017-06-09] MEDS: *HR* Enoxaparin 40 MG/0.4 ML SYRINGE SQ SCH (06:14)
[2017-06-09 09:21] LABS: Hemoglobin A1C 5.3 %
[2017-06-09 09:24] LABS: Chol/HDL Ratio 5.6 (0-4.9); Cholesterol 169 mg/dL (< 200); HDL Cholesterol 30 mg/dL (40-59); LDL Cholesterol,Calculated 102 mg/dL (0-99); Triglycerides 183 mg/dL (< 150)
[2017-06-09] MEDS: cefTRIAXone 1,000 MG in Water for inj. (sterile) 10 ML IVP SCH (10:33)
[2017-06-09] MEDS: Pantoprazole 40 MG VIAL IVP SCH ×2 (10:34→19:43)
--- NOTE | 2017-06-09 10:47 | General Surgery Progress Note ---
Date of Encounter: 06/09/17 Time of Encounter: 10:30 - Assessment and Plan (1) Ileus, unspecified Current Visit: Yes Status: Acute NPO SBFT today Reglan every 6 hours IV fluids- 100ml/hour Supportive care and pain control Serial abdominal exams Surgery will continue to follow and assess progress No urgent surgical intervention indicated at this time (2) Abdominal pain Current Visit: Yes Status: Acute CT scan of the abdomen consistent with ileus 06/07/17 SBFT today Continue reglan every 6 hours NPO Qualifiers: Abdominal location: periumbilical Qualified Code(s): R10.33 - Periumbilical pain (3) Diabetes Current Visit: Yes Status: Chronic Controlled Management per medicine service Qualifiers: Diabetes mellitus type: type 2 Diabetes mellitus complication status: without complication Diabetes mellitus senior living insulin use: without senior living use Qualified Code(s): E11.9 - Type 2 diabetes mellitus without complications (4) GERD (gastroesophageal reflux disease) Current Visit: Yes Status: Chronic PPI therapy daily Qualifiers: Esophagitis presence: without esophagitis Qualified Code(s): K21.9 - Gastro -esophageal reflux disease without esophagitis (5) Right ureteral stone Current Visit: Yes Status: Acute Urology consulted and recommended outpatient follow-up (6) DVT prophylaxis Current Visit: Yes Status: Acute Lovenox 40mg SQ daily for DVT prophylaxis EPCDs to bilateral lower extremities for DVT prophylaxis Subjective Patient reports: no new complaints, still having pain, voiding w/o difficulty, no flatus (denies flatus today), bowel movement (last BM 06/08/17 per patient), nausea (after gastrograffin this morning), vomiting (reported per patient while in X-ray (after gastrograffin given)), afebrile Objective Vital Signs - Last 8 Hours Temp Pulse Resp BP Pulse Ox 06/09/17 06:52 97.4 F L 72 16 120/65 96 06/09/17 04:18 97.6 F 75 16 113/68 94 Intake and Output 06/08/17 06/09/17 06/09/17 23:59 07:59 15:59 Intake Total 1000 / 1000 1000 / 1000 Balance 1000 / 1000 1000 / 1000 Intake: IV Fluids 1000 / 1000 1000 / 1000 D5% And 0.45% Nacl 1000 Ml Bag 1000 / 1000 1000 / 1000 1,000 ML @ 100 mls/hr IVC .Q10H DINA Rx#:[id number] Oral 0 / 0 0 / 0 Other: # Urine Diapers 1 1 Blood Glucose* 93 94 - General physical appearance well developed, well nourished, moderate pain - Eyes normal ocular movement - ENT dry mucosa, atraumatic, normocephalic - Neck Neck exam: trachea midline - Respiratory normal respiratory effort, clear to auscultation - Cardiovascular Cardiovascular exam: Present: RRR - Abdomen Abdomen: Present: bowel sounds present, soft, distended (mildly), tender ( minimal on palpation) Abdominal Tenderness: diffusely - Neurologic CN 2-12 grossly intact - Psychiatric oriented to time, oriented to person, oriented to place, speech is normal, memory intact - Labs 06/09/17 04:00 06/09/17 04:00 Diabetes panel 06/09/17 06/09/17 Range/Units 04:00 04:00 Sodium 142 (136-145) mEq/L Potassium 3.3 L (3.5-4.5) mEq/L Chloride 111 H (98-109) mEq/L Carbon Dioxide 22 (19-29) mEq/L BUN 4 L (8-26) mg/dL Creatinine 0.96 (0.72-1.25) mg/dL Glucose 95 (70-99) mg/dL Hemoglobin A1c 5.3 ( - 5.6) % Calcium 8.8 (8.6-10.8) mg/dL Triglycerides 183 H (< 150) mg/dL HDL Cholesterol 30 L (40-59) mg/dL Calcium panel 06/09/17 Range/Units 04:00 Calcium 8.8 (8.6-10.8) mg/dL Pituitary panel 06/09/17 Range/Units 04:00 Sodium 142 (136-145) mEq/L Potassium 3.3 L (3.5-4.5) mEq/L Chloride 111 H (98-109) mEq/L Carbon Dioxide 22 (19-29) mEq/L BUN 4 L (8-26) mg/dL Creatinine 0.96 (0.72-1.25) mg/dL Glucose 95 (70-99) mg/dL Calcium 8.8 (8.6-10.8) mg/dL Adrenal panel 06/09/17 Range/Units 04:00 Sodium 142 (136-145) mEq/L Potassium 3.3 L (3.5-4.5) mEq/L Chloride 111 H (98-109) mEq/L Carbon Dioxide 22 (19-29) mEq/L BUN 4 L (8-26) mg/dL Creatinine 0.96 (0.72-1.25) mg/dL Glucose 95 (70-99) mg/dL Calcium 8.8 (8.6-10.8) mg/dL - VTE Documentation of Mechanical Device: Intermittent pneumatic compression device Consult Discharge Plan - Plan Referrals: NONE,PCP [Primary Care Provider] - - Attending Attestation For this encounter, I have reviewed the KICK PRESS SETTER or PA documentation, treatment plan, and medical decision making; and I have had face to face time with this patient.
[2017-06-09] MEDS: Metoclopramide 10 MG/2 ML VIAL IVP SCH ×3 (12:01→22:42)
--- NOTE | 2017-06-09 13:38 | Internal Med Progress Note ---
Date of Encounter: 06/09/17 Time of Encounter: 08:00 - Assessment and plan (1) Ileus, unspecified Current Visit: Yes Status: Acute Assessment and plan: Jerald Belcher is a 67 y/o male with PMH diabetes, GERD and MRDD who presented to outside hospital on 06/05 with complaints of abdominal pain. He was found to have severe hydronephrosis and a large partially obstructing stone and was transferred to [facility] for further workup and treatment. 1. Ileus: presented with abdominal pain that started day of admission. Hx partial colectomy but details unclear. Outside hospital abdominal CT with chronic hydronephrosis, chronic ureteritis and possible ileus. Repeat ABD CT with mildly dilated small bowel loops and gaseous distention of transverse colon , concerning for SBO or ilues. No vomiting. Still with abdominal pain. Abdominal exam benign; no peritoneal signs. Hold on NG. 06/09 SBFT with no evidence of obstruction. Advance diet. Ambulation. General surgery following. 2. Chest pain: According intermittent chest pain since arrival, reproducible on exam. Serial troponins negative. EKG without acute ST changes. No known CAD, previous cardiac workup unknown. Echo pending. Start ASA, lipid panel, Hgb A1c pending. 3. Hydronephrosis with obstructing calculus: presented to outside hospital with abdominal pain. ABD CT showed severe right-sided hydronephrosis with large, partially obstructing stone. Renal US showed severe right hydronephrosis with multiple stones in the proximal right ureter. He was evaluated by Urology who noted likely chronic, no acute intervention required at this time. Will need to follow up with Urology after discharge. 4. Abnormal UA: UA was leuk esterase and pyuria. Continue Rocephin. Urine culture pending. Narrow ATB as culture finalizes. 5. Hypertension: Per history. BP soft/borderline. Hold home BB. Resume as BP allows. 6. Diabetes: per hx. SSI. Monitor blood sugar and titrate PRN 7. MRDD: per hx. High functioning. Lives at [facility]. Mentation appears at baseline. Supportive care. 8. DVT prophylaxis: Lovenox Disposition: Return to [facility] once echo attained and tolerating PO (2) Hydronephrosis with obstructing calculus Current Visit: Yes Status: Acute (3) Cognitive developmental delay Current Visit: Yes Status: Acute (4) Diabetes Current Visit: Yes Status: Chronic Qualifiers: Diabetes mellitus type: type 2 Diabetes mellitus complication status: without complication Diabetes mellitus intermediate insulin use: without computer terminal operator use Qualified Code(s): E11.9 - Type 2 diabetes mellitus without complications - Subjective Interval history: Seen and examined at bedside. Laying in bed, no distress apparent. Still with complaints of chest pain and abdominal pain. Both reproducible on exam. He does not describe pain characteristics intensities or alleviating/aggravating factors. Only states "it just hurts". Strongly encouraged ambulation; patient' s high functioning MRDD and unsure how much he is understanding/comprehending. - Constitutional Vitals: Temp Pulse Resp BP Pulse Ox 97.9 F 85 14 114/69 100 06/09/17 11:26 06/09/17 11:26 06/09/17 11:26 06/09/17 11:26 06/09/17 11:26 General appearance: Present: A&O X 2 (Disoriented in time) - Head Head exam: Present: atraumatic, normocephalic - Eye Eye exam: Present: PERRL, conjuntiva pink, sclera anicteric Pupils: Present: PERRL - Neck Neck exam general surgery: Present: supple, trachea midline. Absent: lymphadenopathy - Respiratory Respiratory exam: Present: chest wall tenderness, CTAB. Absent: accessory muscle use, rales, rhonchi, wheezes - Cardiovascular Cardiovascular exam: Present: RRR, +S1, +S2. Absent: diastolic murmur, gallop, rubs, systolic murmur - GI/Abdominal GI/Abdominal exam: Present: normal bowel sounds, soft, no peritoneal signs. Absent: distended, tenderness - Extremities Exam Extremities exam: Present: warm, radial pulses palpable and symmetrical. Absent : calf tenderness, cyanotic, pedal edema - Neurological Exam Neurological exam: Present: CN II-XII intact, oriented X3, no focal deficits. Absent: pronater drift, facial droop, speech deficit - Skin Skin exam: Present: dry, intact Internal Medicine: Result - Labs CBC & Chem 7: 06/09/17 04:00 06/09/17 04:00 Labs: Short CBC 06/09/17 Range/Units 04:00 WBC 7.5 (4.3-11.1) K/mcL Hgb 10.2 L (12.9-16.9) g/dL Hct 32.6 L (37.5-50.1) % Plt Count 268 (140-400) K/mcL BMP 06/09/17 04:00 Sodium 142 Potassium 3.3 L Chloride 111 H Carbon Dioxide 22 BUN 4 L Creatinine 0.96 Glucose 95 Calcium 8.8 Cardiac Enzymes 06/08/17 06/09/17 Range/Units 17:38 04:00 Troponin I 0.00 0.00 (0-0.03) ng/mL - Impressions Impressions Small Bowel X-Ray 06/09/17 08:05 IMPRESSION: Unremarkable small bowel follow through series. D/ / Larry Cespedes MD / Larry Cespedes MD Interpreting Provider: Larry Cespedes MD - VTE Documentation of Mechanical Device: Intermittent pneumatic compression device Consult Discharge Plan - Plan Referrals: NONE,PCP [Primary Care Provider] -
[2017-06-09] MEDS: Acetaminophen 325 MG TABLET PO PRN (22:42)
[2017-06-10] MEDS: D5% in 0.45% NACL 1,000 ML IVC SCH ×4 (01:06→22:10)
[2017-06-10] MEDS: Insulin LISPRO 300 UNITS/3 ML VIAL SQ SCH ×4 (01:15→17:51)
[2017-06-10 04:08] LABS: Hematocrit 32.2 % (37.5-50.1); Hemoglobin 10.1 g/dL (12.9-16.9); Mean Corpuscular HGB Conc 31.4 g/dL (31.6-35.5); Mean Corpuscular Hemoglobin 28.9 pg (28.0-33.3); Mean Corpuscular Volume 92.3 fL (83.0-100.0); Platelet Count 259 K/mcL (140-400); Red Blood Count 3.49 M/mcL (4.19-5.50); Red Cell Distribution Width 14.3 % (11.5-14.5)
[2017-06-10 04:31] LABS: BUN/Creatinine Ratio 3 (6-26); Calcium 8.4 mg/dL (8.6-10.8); Carbon Dioxide 19 mEq/L (19-29); Chloride 113 mEq/L (98-109); Glucose 97 mg/dL (70-99); Osmolality,Calculated 288 (280-300); Potassium 3.4 mEq/L (3.5-4.5); Sodium 141 mEq/L (136-145); eGFR For African Americans > 60 (> 60); eGFR For Non-African Americans > 60 (> 60)
[2017-06-10 04:39] LABS: Blood Urea Nitrogen 3 mg/dL (8-26)
[2017-06-10] MEDS: Metoclopramide 10 MG/2 ML VIAL IVP SCH ×4 (05:37→23:38)
[2017-06-10] MEDS: *HR* Enoxaparin 40 MG/0.4 ML SYRINGE SQ SCH (05:37)
[2017-06-10] MEDS: Aspirin 81 MG TAB.CHEW PO SCH (09:30)
[2017-06-10] MEDS: *HR* Morphine 2 MG/ML SYRINGE IVP PRN ×3 (09:30→20:42)
[2017-06-10] MEDS: Pantoprazole 40 MG VIAL IVP SCH (09:31)
[2017-06-10] MEDS: cefTRIAXone 1,000 MG in Water for inj. (sterile) 10 ML IVP SCH (09:31)
--- NOTE | 2017-06-10 14:56 | Internal Med Progress Note ---
Date of Encounter: 06/10/17 Time of Encounter: 09:00 - Assessment and plan (1) Abdominal pain Current Visit: Yes Status: Acute Assessment and plan: Etiology is undetermined. Probably due to ileus. Abdominal CT scan shows ileus , otherwise unremarkable. - We will continue supportive treatment, advance diet as tolerated - Encourage patient to get out of bed and ambulating. - Symptomatic treatment, correct electrolyte abnormalities Qualifiers: Abdominal location: periumbilical Qualified Code(s): R10.33 - Periumbilical pain (2) Cognitive developmental delay Current Visit: Yes Status: Acute (3) DVT prophylaxis Current Visit: Yes Status: Acute Assessment and plan: On Lovenox SC (4) Hydronephrosis with obstructing calculus Current Visit: Yes Status: Acute Assessment and plan: Urology saw patient. Chronic hydronephrosis. Follow-up as outpatient (5) Ileus, unspecified Current Visit: Yes Status: Acute Assessment and plan: Surgical consult on case and sign off now. Encourage pt to ambulate with assistance. Correct electrolytes abnormalities. Advance diet as tolerated. (6) Diabetes Current Visit: Yes Status: Chronic Assessment and plan: Glu is not high, cover with sliding scale. Qualifiers: Diabetes mellitus type: type 2 Diabetes mellitus complication status: without complication Diabetes mellitus termination clerk insulin use: without half-way use Qualified Code(s): E11.9 - Type 2 diabetes mellitus without complications (7) GERD (gastroesophageal reflux disease) Current Visit: Yes Status: Chronic Assessment and plan: Continue home medications Qualifiers: Esophagitis presence: without esophagitis Qualified Code(s): K21.9 - Gastro -esophageal reflux disease without esophagitis (8) UTI (urinary tract infection) Current Visit: Yes Status: Acute Assessment and plan: Urine culture negative. Discontinue Rocephin. Qualifiers: Urinary tract infection type: acute cystitis Hematuria presence: without hematuria Qualified Code(s): N30.00 - Acute cystitis without hematuria - Time Spent With Patient 25 - 35 minutes - Subjective Interval history: Patient is a 67-year-old male admitted with abdominal pain and nausea. Past medical history is significant for depression, hyperlipidemia, diabetes type 2, hypertension, GERD, MRDD Patient was seen and examined. Still complaining of abdominal pain and chest pain. Has poor appetite. No nausea or vomiting. Vitals are stable. Surgery signed off already as small bowel follow-through test negative. We will continue symptomatic treatment and advanced diet as tolerated. EKG reviewed, no significant ST-T changes, troponin negative 2 earlier. We will waiting for echo results. Check liver function and lipase in a.m. although abdominal CT doesn't show pancreatitis. - Constitutional Vitals: Temp Pulse Resp BP Pulse Ox 97.9 F 78 16 108/66 97 06/10/17 11:40 06/10/17 11:40 06/10/17 11:40 06/10/17 11:40 06/10/17 11:40 General appearance: Present: A&O X 2 (Disoriented in time), no acute distress, answers questions appropriately - Head Head exam: Present: atraumatic, normocephalic - Eye Eye exam: Present: PERRL, conjuntiva pink, sclera anicteric Pupils: Present: PERRL - Neck Neck exam general surgery: Present: supple, trachea midline. Absent: lymphadenopathy - Respiratory Respiratory exam: Present: chest wall tenderness (On sternal area), CTAB. Absent: accessory muscle use, rales, rhonchi, wheezes - Cardiovascular Cardiovascular exam: Present: RRR, +S1, +S2. Absent: diastolic murmur, gallop, rubs, systolic murmur - GI/Abdominal GI/Abdominal exam: Present: normal bowel sounds, soft, tenderness ([place]-abd tenderness without rebound or guarding), no peritoneal signs. Absent: distended - Extremities Exam Extremities exam: Present: warm, radial pulses palpable and symmetrical. Absent : calf tenderness, cyanotic, pedal edema - Neurological Exam Neurological exam: Present: CN II-XII intact, oriented X3, no focal deficits. Absent: pronater drift, facial droop, speech deficit - Skin Skin exam: Present: dry, intact Internal Medicine: Result - Labs CBC & Chem 7: 06/10/17 04:00 06/10/17 04:00 Labs: Short CBC 06/10/17 Range/Units 04:00 WBC 8.7 (4.3-11.1) K/mcL Hgb 10.1 L (12.9-16.9) g/dL Hct 32.2 L (37.5-50.1) % Plt Count 259 (140-400) K/mcL BMP 06/10/17 04:00 Sodium 141 Potassium 3.4 L Chloride 113 H Carbon Dioxide 19 BUN 3 L Creatinine 0.96 Glucose 97 Calcium 8.4 L - VTE Documentation of Mechanical Device: Intermittent pneumatic compression device Consult Discharge Plan - Plan Referrals: NONE,PCP [Primary Care Provider] -
[2017-06-11 04:48] LABS: Basophils % 0.3 %; Eosinophils # 0.6 K/mcL (0.0-0.6); Eosinophils % 5.7 %; Hemoglobin 9.8 g/dL (12.9-16.9); Immature Granulocytes % 0.3 % (0-4); Lymphocytes # 2.5 K/mcL (0.6-4.6); Lymphocytes % 25.6 %; Mean Corpuscular HGB Conc 31.6 g/dL (31.6-35.5); Mean Corpuscular Hemoglobin 28.8 pg (28.0-33.3); Mean Corpuscular Volume 91.2 fL (83.0-100.0); Mean Platelet Volume 10.3 fL (9.4-12.4); Neutrophils # 5.7 K/mcL (1.6-8.9); Platelet Count 265 K/mcL (140-400); Red Cell Distribution Width 14.1 % (11.5-14.5); Segmented Neutrophils % 58.1 %
[2017-06-11 04:57] LABS: Albumin 2.6 g/dL (3.5-5.0); Albumin/Globulin Ratio 0.7 (1.1-2.2); Alkaline Phosphatase 54 Units/L (38-126); Aspartate Amino Transferase 13 Units/L (5-34); BUN/Creatinine Ratio 2 (6-26); Bilirubin,Total 0.3 mg/dL (0.2-1.2); Calcium 8.5 mg/dL (8.6-10.8); Carbon Dioxide 22 mEq/L (19-29); Chloride 112 mEq/L (98-109); Globulin 3.6 g/dL (2.4-3.5); Glucose 95 mg/dL (70-99); Lipase 37 Units/L (8-78); Osmolality,Calculated 286 (280-300); Potassium 3.1 mEq/L (3.5-4.5); Sodium 140 mEq/L (136-145); Total Protein 6.2 g/dL (6.0-8.3); eGFR For African Americans > 60 (> 60); eGFR For Non-African Americans > 60 (> 60)
[2017-06-11 04:59] LABS: Alanine Aminotransferase < 6 Units/L (0-55); Blood Urea Nitrogen 2 mg/dL (8-26)
[2017-06-11] MEDS: Metoclopramide 10 MG/2 ML VIAL IVP SCH ×2 (05:53→11:42)
[2017-06-11] MEDS: *HR* Enoxaparin 40 MG/0.4 ML SYRINGE SQ SCH (05:53)
[2017-06-11] MEDS: Insulin LISPRO 300 UNITS/3 ML VIAL SQ SCH ×4 (08:21→21:48)
[2017-06-11] MEDS: Aspirin 81 MG TAB.CHEW PO SCH (08:29)
[2017-06-11] MEDS: *HR* Morphine 2 MG/ML SYRINGE IVP PRN ×3 (11:42→20:34)
--- NOTE | 2017-06-11 11:50 | Internal Med Progress Note ---
Date of Encounter: 06/11/17 Time of Encounter: 09:00 - Assessment and plan (1) Abdominal pain Current Visit: Yes Status: Acute Assessment and plan: Etiology is undetermined. Probably due to ileus. Abdominal CT scan shows ileus , otherwise unremarkable. - We will continue supportive treatment, advance diet as tolerated - Encourage patient to get out of bed and ambulating. - Symptomatic treatment, correct electrolyte abnormalities (Pt has hypokalemia and hypomagnesia) - C/o of diarrhea, check GI penal. Qualifiers: Abdominal location: periumbilical Qualified Code(s): R10.33 - Periumbilical pain (2) Cognitive developmental delay Current Visit: Yes Status: Acute (3) DVT prophylaxis Current Visit: Yes Status: Acute Assessment and plan: On Lovenox SC (4) Hydronephrosis with obstructing calculus Current Visit: Yes Status: Acute Assessment and plan: Urology saw patient. Chronic hydronephrosis. Follow-up as outpatient (5) Ileus, unspecified Current Visit: Yes Status: Acute Assessment and plan: Surgical consult on case and sign off now. Encourage pt to ambulate with assistance. Correct electrolytes abnormalities. Advance diet as tolerated. (6) Diabetes Current Visit: Yes Status: Chronic Assessment and plan: Glu is not high, cover with sliding scale. Qualifiers: Diabetes mellitus type: type 2 Diabetes mellitus complication status: without complication Diabetes mellitus fdc insulin use: without fdc use Qualified Code(s): E11.9 - Type 2 diabetes mellitus without complications (7) GERD (gastroesophageal reflux disease) Current Visit: Yes Status: Chronic Assessment and plan: Continue home medications Qualifiers: Esophagitis presence: without esophagitis Qualified Code(s): K21.9 - Gastro -esophageal reflux disease without esophagitis (8) UTI (urinary tract infection) Current Visit: Yes Status: Acute Assessment and plan: Urine culture negative. Discontinue Rocephin. Qualifiers: Urinary tract infection type: acute cystitis Hematuria presence: without hematuria Qualified Code(s): N30.00 - Acute cystitis without hematuria - Time Spent With Patient 25 - 35 minutes - Subjective Interval history: Patient is a 67-year-old male admitted with abdominal pain and nausea. Past medical history is significant for depression, hyperlipidemia, diabetes type 2, hypertension, GERD, MRDD Patient was seen and examined. Abdominal pain improved. Also resolved chest wall tenderness. Has diarrhea since yesterday. Still has poor appetite. No nausea or vomiting. Vitals are stable. We will continue symptomatic treatment and advanced diet as tolerated. Echo shows diastolic dysfunction but pt's chest pain is induciable chest wall tenderness, may not related to echo finding. Normal lipase and liver enzymes. Will check GI penal, hold reglan. Pt has severe hypokalemia and hypomagnesia, supplement given. - Constitutional Vitals: Temp Pulse Resp BP Pulse Ox 97.9 F 84 16 131/70 96 06/11/17 11:35 06/11/17 11:35 06/11/17 11:35 06/11/17 11:35 06/11/17 11:35 General appearance: Present: A&O X 2 (Disoriented in time), no acute distress, answers questions appropriately - Head Head exam: Present: atraumatic, normocephalic - Eye Eye exam: Present: PERRL, conjuntiva pink, sclera anicteric Pupils: Present: PERRL - Neck Neck exam general surgery: Present: supple, trachea midline. Absent: lymphadenopathy - Respiratory Respiratory exam: Present: CTAB. Absent: accessory muscle use, rales, rhonchi, wheezes - Cardiovascular Cardiovascular exam: Present: RRR, +S1, +S2. Absent: diastolic murmur, gallop, rubs, systolic murmur - GI/Abdominal GI/Abdominal exam: Present: normal bowel sounds, soft, no peritoneal signs. Absent: distended, tenderness - Extremities Exam Extremities exam: Present: warm, radial pulses palpable and symmetrical. Absent : calf tenderness, cyanotic, pedal edema - Neurological Exam Neurological exam: Present: CN II-XII intact, oriented X3, no focal deficits. Absent: pronater drift, facial droop, speech deficit - Skin Skin exam: Present: dry, intact Internal Medicine: Result - Labs CBC & Chem 7: 06/11/17 04:27 06/11/17 04:27 Labs: Short CBC 06/11/17 Range/Units 04:27 WBC 9.8 (4.3-11.1) K/mcL Hgb 9.8 L (12.9-16.9) g/dL Hct 31.0 L (37.5-50.1) % Plt Count 265 (140-400) K/mcL Neutrophils # 5.7 (1.6-8.9) K/mcL BMP 06/11/17 04:27 Sodium 140 Potassium 3.1 L Chloride 112 H Carbon Dioxide 22 BUN 2 L Creatinine 1.04 Glucose 95 Calcium 8.5 L Liver Function 06/11/17 Range/Units 04:27 Total Bilirubin 0.3 (0.2-1.2) mg/dL AST 13 (5-34) Units/L ALT < 6 (0-55) Units/L Alkaline Phosphatase 54 (38-126) Units/L Albumin 2.6 L (3.5-5.0) g/dL - Impressions Impressions Echocardiogram 06/10/17 09:04 Impressions: LVEF 50-55%. Diastolic dysfunction, degree unspecified No pulmonary hypertension. Mildly dilated right ventricle with normal function Left Ventricular Wall Motion: Rest Echo Findings All wall segments showed normal motion. Findings: Study Quality * Technically adequate exam. Left Atrium * Normal left atrial size. Right Atrium * Normal right atrial size. Mitral Valve * Normal mitral valve structure and function. Interatrial Septum * No evidence of PFO by color Doppler. Aorta * Normally sized aortic root. Pericardium * The pericardium appears normal. Left Ventricle * Normal LV chamber size, wall thickness and function. * Atypical septal motion consistent with bundle branch block. * LVEF 50-55%. * Diastolic dysfunction, degree unspecified Tricuspid Valve * No tricuspid stenosis. * Trace tricuspid regurgitation. * Estimated RA pressure is 3-5 mmHg. * No pulmonary hypertension. * Estimated RVSP is 20 mmHg. Aortic Valve * Normal aortic valve structure. * No aortic stenosis. * Mild aortic regurgitation. ECG Findings * Sinus rhythm with BBB. Right Ventricle * Mildly dilated right ventricle. * Normal function IVC * Normal IVC dimensions and inspiratory collapse. - VTE Documentation of Mechanical Device: Intermittent pneumatic compression device Consult Discharge Plan - Plan Referrals: NONE,PCP [Primary Care Provider] -
[2017-06-12 04:35] LABS: Basophils % 0.4 %; Eosinophils # 0.6 K/mcL (0.0-0.6); Eosinophils % 6.5 %; Hematocrit 32.3 % (37.5-50.1); Hemoglobin 10.4 g/dL (12.9-16.9); Immature Granulocytes % 0.3 % (0-4); Lymphocytes # 2.9 K/mcL (0.6-4.6); Lymphocytes % 31.9 %; Mean Corpuscular HGB Conc 32.2 g/dL (31.6-35.5); Mean Corpuscular Hemoglobin 29.4 pg (28.0-33.3); Mean Corpuscular Volume 91.2 fL (83.0-100.0); Monocytes # 0.9 K/mcL (0.0-1.3); Monocytes % 10.1 %; Neutrophils # 4.6 K/mcL (1.6-8.9); Platelet Count 251 K/mcL (140-400); Red Blood Count 3.54 M/mcL (4.19-5.50); Red Cell Distribution Width 14.2 % (11.5-14.5); Segmented Neutrophils % 50.8 %
[2017-06-12 04:46] LABS: BUN/Creatinine Ratio 2 (6-26); Blood Urea Nitrogen 2 mg/dL (8-26); Calcium 8.7 mg/dL (8.6-10.8); Carbon Dioxide 20 mEq/L (19-29); Chloride 111 mEq/L (98-109); Glucose 83 mg/dL (70-99); Osmolality,Calculated 285 (280-300); Sodium 140 mEq/L (136-145); eGFR For African Americans > 60 (> 60); eGFR For Non-African Americans > 60 (> 60)
[2017-06-12] MEDS: *HR* Enoxaparin 40 MG/0.4 ML SYRINGE SQ SCH (06:22)
[2017-06-12] MEDS: Insulin LISPRO 300 UNITS/3 ML VIAL SQ SCH ×2 (08:15→13:29)
--- NOTE | 2017-06-12 08:46 | Discharge Summary ---
<Juan Plasencia - Last Filed: 06/12/17 12:58> Date of Encounter: 06/12/17 Time of Encounter: 07:45 - Discharge Diagnosis (1) Ileus, unspecified Priority: Primary Status: Resolved (2) Abdominal pain Priority: Primary Status: Acute Qualifiers: Abdominal location: periumbilical Qualified Code(s): R10.33 - Periumbilical pain (3) Hydronephrosis with obstructing calculus Priority: Primary Status: Chronic (4) Diabetes Priority: Primary Status: Chronic Qualifiers: Diabetes mellitus type: type 2 Diabetes mellitus complication status: without complication Diabetes mellitus nursing home insulin use: without terminal block assembler use Qualified Code(s): E11.9 - Type 2 diabetes mellitus without complications (5) GERD (gastroesophageal reflux disease) Priority: Primary Status: Chronic Qualifiers: Esophagitis presence: without esophagitis Qualified Code(s): K21.9 - Gastro -esophageal reflux disease without esophagitis (6) Cognitive developmental delay Priority: Primary Status: Chronic (7) DVT prophylaxis Priority: Primary Status: Acute - Discharge Medications Prescriptions: Aspirin 81 mg PO DAILY #30 tab.chew Home Medications: Acetaminophen [Tylenol] 650 mg PO Q4H PRN 06/06/17 [History] Bisacodyl [Dulcolax] 10 mg RC DAILY PRN 06/06/17 [History] Calcium Carbonate/Vitamin D3 [Calcium 500 + Vit D Caplet] 1 tab PO BID 06/06/17 [History] Docusate Sodium [Dok] 100 mg PO Q12H PRN 06/06/17 [History] Loratadine [Allergy Relief] 10 mg PO DAILY 06/06/17 [History] Metoprolol [Lopressor] 25 mg PO BID 06/06/17 [History] [place]-3/Dha/Epa/Fish Oil [Fish Oil 1,000 mg Softgel] 1 cap PO DAILY 06/06/17 [ History] Potassium Chloride [K-Tab ER] 20 meq PO BID 06/06/17 [History] Prochlorperazine Maleate [Compazine] 5 mg PO ACHS 06/06/17 [History] Promethazine [Phenergan] 25 mg PO Q4H 06/06/17 [History] Quetiapine Fumarate [Seroquel] 50 mg PO HS 06/06/17 [History] Sertraline [Zoloft] 50 mg PO HS 06/06/17 [History] Triamcinolone Acet 0.1% CRM [Kenalog] 1 appl TP BID PRN 06/06/17 [History] Aspirin 81 mg PO DAILY #30 tab.chew 06/12/17 [Rx] Allergies/Adverse Reactions: 3 Allergy/AdvReac Type Severity Reaction Status Date / Time No Known Allergies Allergy Verified 06/06/17 03:24 Procedures/tests Complete & Pending: Procedures Performed prior 72 hours Category Date Time Status EV echocardiogram Stat Y 06/10/17 09:04 Completed Date of admission: 06/07/17 17:20 Primary care physician: PCP NONE Consults: 06/05/17 21:29 Consult to Urology [CONS] Routine Consulting Provider: Urology Yanira Reason for Consult: severe right hydronephrosis, obstruction Call Completed: No 06/07/17 10:29 Consult to Surgery [CONS] Routine Consulting Provider: Rai Thompson Reason for Consult: SBO/ilues. With worsening abdominal pain Call Completed: Yes 06/08/17 09:30 Consult to Physical Therapy [CONS] Routine Comment: Evaluate, develop and implement POC Reason for Consult: poor functional status and will not ambulate OT [Consult to Occupational Therapy] [CONS] Routine Comment: Evaluate, develop and implement POC Reason for Consult: poor functional status and will not ambulate 06/12/17 07:43 consult to special procedure technologist [Consult to Nutrition] [CONS] Routine Comment: Consulting Provider: NUTRITION Reason for Dietary Consult: PO Supplementation Discharging clinician: Juan Plasencia Anticipated date of discharge: 06/12/17 - Patient Status Disposition: Transfer LTC Condition: Fair Overall status at discharge: patient is progressing back to baseline - Discharge Instructions Instructions: Aspirin (By mouth) Follow Up With: NONE,PCP [Primary Care Provider] - Additional Instructions: Please return to the emergency room with development of nausea, vomiting, increased abdominal pain, chest pain, shortness breath, fever, or chills. Return the emergency department patient develops difficulty in eating or anorexia. Take all medications as prescribed: Take all home medications Take aspirin 81 mg once daily Please follow-up with your PCP in 1-2 weeks Please follow-up with urology in 1-2 weeks for further assessment of ureteral stone - Diet and Activity Activity: as per physical therapy Diet: advance to your usual diet, diabetic diet Interval History: Patient reportedly still doing well today, denies having any pain in his abdomen. Patient still having some diarrhea. Has not had problems with bleeding so far. Hospital course: Mr. Belcher is a 67 year old male with past medical history of MRDD, depression, osteoporosis, diabetes type 2, and he resides at [facility] in [place] was transferred from [facility] on 06/05/17 after having been complaining of nausea and abdominal pain for several days, the patient not the best historian due to chronic cognitive delay.. Upon presentation to [facility] he was initially found to have a severe right hydronephrosis with large partially obstructing ureteral stone. Urology was consulted and they felt this was a chronic issue not requiring acute intervention at this time and unlikely the source of patient's symptoms. The same CT examination that showed the hydronephrosis also demonstrated possible ileus. Gen. surgery was consulted and he was made nothing by mouth, given IV fluids, and with no immediate surgical intervention deemed necessary, he receive supportive care with pain control and serial abdominal exams. His abdominal exam was relatively benign, reported only having mild abdominal pain to palpation. Over the next several days patient began to improve his diet was slowly advanced. He started on clear liquids and was advanced to softs. He reported having continued diarrhea but was doing well overall. He underwent a small bowel follow-through which showed contrast through his: An 1 hour 15 minutes. At the time of discharge patient is tolerating his diet well has minimal abdominal discomfort to palpation in continued diarrhea. He is safe and stable for discharge and will likely improve following leaving the hospital. - Time Spent with Patient Total time spent providing and/or coordinating discharge services: - Constitutional Vitals: Temp Pulse Resp BP Pulse Ox 97.8 F 89 16 108/69 96 06/12/17 08:11 06/12/17 08:11 06/12/17 08:11 06/12/17 08:11 06/12/17 08:11 General appearance: Present: A&O X 2 (Disoriented in time), no acute distress, answers questions appropriately Exam: General: Cooperative, pleasant, no acute distress, alert and oriented 2, answers questions appropriately HEENT: Normocephalic, atraumatic, neck supple, trachea midline, Conjunctiva pink , sclera anicteric, oral mucosa dry Respiratory: No accessory muscle usage, clear to auscultation bilaterally, no wheezes/rhonchi/rales appreciated Cardiovascular: Regular rate and rhythm, S1 and S2 present, no murmurs/rubs/ gallops/clicks appreciated GI/abdominal: Nondisted, mild tenderness to palpation in the upper left quadrant , soft, slightly hyperactiveounds, no peritoneal signs, Extremities: No calf tenderness, noncyanotic, no pedal edema appreciated, warm, lower extremity pulses palpable and symmetrical Neurological: Alert and oriented 2, no facial droop, no focal deficits - VTE Documentation of Mechanical Device: Intermittent pneumatic compression device <Dandre Cho - Last Filed: 06/12/17 13:04> Date of Encounter: 06/12/17 - Discharge Diagnosis (1) Abdominal pain Status: Acute Qualifiers: Abdominal location: periumbilical Qualified Code(s): R10.33 - Periumbilical pain (2) Cognitive developmental delay Status: Chronic (3) DVT prophylaxis Status: Acute (4) Hydronephrosis with obstructing calculus Status: Chronic (5) Ileus, unspecified Status: Resolved (6) Diabetes Status: Chronic Qualifiers: Diabetes mellitus type: type 2 Diabetes mellitus complication status: without complication Diabetes mellitus nursing home insulin use: without terminal block assembler use Qualified Code(s): E11.9 - Type 2 diabetes mellitus without complications (7) GERD (gastroesophageal reflux disease) Status: Chronic Qualifiers: Esophagitis presence: without esophagitis Qualified Code(s): K21.9 - Gastro -esophageal reflux disease without esophagitis (8) UTI (urinary tract infection) Status: Acute Qualifiers: Urinary tract infection type: acute cystitis Hematuria presence: without hematuria Qualified Code(s): N30.00 - Acute cystitis without hematuria Procedures/tests Complete & Pending: Procedures Performed prior 72 hours Category Date Time Status EV echocardiogram Stat Y 06/10/17 09:04 Completed Date of admission: 06/07/17 17:20 Primary care physician: PCP NONE Consults: 06/05/17 21:29 Consult to Urology [CONS] Routine Consulting Provider: Urology Yanira Reason for Consult: severe right hydronephrosis, obstruction Call Completed: No 06/07/17 10:29 Consult to Surgery [CONS] Routine Consulting Provider: Rai Thompson Reason for Consult: SBO/ilues. With worsening abdominal pain Call Completed: Yes 06/08/17 09:30 Consult to Physical Therapy [CONS] Routine Comment: Evaluate, develop and implement POC Reason for Consult: poor functional status and will not ambulate OT [Consult to Occupational Therapy] [CONS] Routine Comment: Evaluate, develop and implement POC Reason for Consult: poor functional status and will not ambulate 06/12/17 07:43 consult to special procedure technologist [Consult to Nutrition] [CONS] Routine Comment: Consulting Provider: NUTRITION Reason for Dietary Consult: PO Supplementation Hospital course: Mr. Belcher is a 67 year old male - Time Spent with Patient Total time spent providing and/or coordinating discharge services: - Constitutional Vitals: Temp Pulse Resp BP Pulse Ox 97.4 F L 87 15 110/69 97 06/12/17 10:30 06/12/17 10:30 06/12/17 10:30 06/12/17 10:30 06/12/17 10:30 - Attending Attestation I have seen and examined pt independently. I have discussed with resident physician DR. Rendon regarding the management plan. Agree with the documentation. Pt has no abd pain any more today. Tolerate diet well. Denies chest pain. Hypokalemia and hypomagnesia has been corrected. Vitals stable. So far all test include liver function, lipase, CT abd are unremarkable (except illeus). Pt had BM. Diarrhea stopped. Will d/c back to SNF and continue his previous home medications.
[2017-06-12] MEDS: Aspirin 81 MG TAB.CHEW PO SCH (09:36)
--- NOTE | 2017-06-12 10:29 | Physician Discharge Referral ---
ExtendedCare Referral Info Transfer To: [facility] Provider in Charge after Transfer: PCP Institutional Level of Care: Intermediate - Diagnosis (1) Ileus, unspecified Priority: Primary Status: Resolved (2) Abdominal pain Priority: Primary Status: Acute (3) Hydronephrosis with obstructing calculus Priority: Primary Status: Chronic (4) Diabetes Priority: Primary Status: Chronic (5) GERD (gastroesophageal reflux disease) Priority: Primary Status: Chronic (6) Cognitive developmental delay Priority: Primary Status: Chronic (7) DVT prophylaxis Priority: Secondary Status: Acute - Transfer Medications Prescriptions: Aspirin 81 mg PO DAILY #30 tab.chew Home Medications: Acetaminophen [Tylenol] 650 mg PO Q4H PRN 06/06/17 [History] Bisacodyl [Dulcolax] 10 mg RC DAILY PRN 06/06/17 [History] Calcium Carbonate/Vitamin D3 [Calcium 500 + Vit D Caplet] 1 tab PO BID 06/06/17 [History] Docusate Sodium [Dok] 100 mg PO Q12H PRN 06/06/17 [History] Loratadine [Allergy Relief] 10 mg PO DAILY 06/06/17 [History] Metoprolol [Lopressor] 25 mg PO BID 06/06/17 [History] [place]-3/Dha/Epa/Fish Oil [Fish Oil 1,000 mg Softgel] 1 cap PO DAILY 06/06/17 [ History] Potassium Chloride [K-Tab ER] 20 meq PO BID 06/06/17 [History] Prochlorperazine Maleate [Compazine] 5 mg PO ACHS 06/06/17 [History] Promethazine [Phenergan] 25 mg PO Q4H 06/06/17 [History] Quetiapine Fumarate [Seroquel] 50 mg PO HS 06/06/17 [History] Sertraline [Zoloft] 50 mg PO HS 06/06/17 [History] Triamcinolone Acet 0.1% CRM [Kenalog] 1 appl TP BID PRN 06/06/17 [History] Aspirin 81 mg PO DAILY #30 tab.chew 06/12/17 [Rx] Allergies/Adverse Reactions: 3 Allergy/AdvReac Type Severity Reaction Status Date / Time No Known Allergies Allergy Verified 06/06/17 03:24 - Respiratory Orders Smoking Cessation: Smoking cessation has been advised. For more information, call the [place] Tobacco Quit Line at 0-533-BHXU-NOW. - Advance Directives Code Status: Full Code - Mobility Orders Other (Assist for ambulation) - Rehabiliation Orders Rehab Orders: Evaluation for Physical Therapy, Evaluation for Occupational Therapy CERTIFICATION: I certify that the transfer of the above named patient to an Extended Care Facility is necessary for the continuing treatment of the diagnosis listed. The above information is true and accurate reflection of patient's current condition. Confidential - Redisclosure prohibited without a patient's written consent.
[2017-06-12 10:52] VITALS: BP 110/69
[2017-06-12] MEDS: *HR* Morphine 2 MG/ML SYRINGE IVP PRN (11:08)
== END 2017-06-12 15:10 | DRG 247 ==
LOC: 3ANU
PROVIDERS: ADMIT Hospitalist; ATTEND Internal Medicine